=== PATIENT | female | born 1990 | race Caucasian/White ===

== ENCOUNTER 2016-12-24 06:05 | Emergency (ER) | payer BC ==
[2016-12-24 05:33] LABS: BASOPHILS 0.1 %; BASOPHILS ABSOLUTE 0.01 10/3/uL (0.0-0.16); EOSINOPHILS 0.2 %; EOSINOPHILS ABSOLUTE 0.02 10/3/uL (0.0-0.53); ER CBC TAT 0 Hrs 05 MinsNP; HEMATOCRIT 37.9 % (36.0-48.0); HEMOGLOBIN 13.3 g/dL (12.0-16.0); IMMATURE GRANULOCYTES 0.3 %; IMMATURE GRANULOCYTES ABSOLUTE 0.03 10/3/uL (0.0-0.11); LYMPHOCYTES 16.9 %; LYMPHOCYTES ABSOLUTE 1.69 10/3/uL (0.67-4.30); MANUAL DIFF NO %; MEAN CORPUS HGB CONC 35.1 g/dL (32.0-36.0); MEAN CORPUSCULAR HEMOGLOB 30.1 pg (26.0-34.0); MEAN CORPUSCULAR VOLUME 85.7 fL (80-100); MEAN PLATELET VOLUME 10.4 fL (9.2-13.0); MONOCYTES 6.8 %; MONOCYTES ABSOLUTE 0.68 10/3/uL (0.21-1.20); NEUTROPHILS 75.7 %; NEUTROPHILS ABSOLUTE 7.59 10/3/uL (2.02-8.40); PLATELET COUNT 294 10/3/uL (150-400); RBC DISTRIBUTION WIDTH 13.8 % (12.0-16.0); RED CELL COUNT 4.42 10/6/uL (4.0-5.6)
[2016-12-24 05:48] LABS: A/G RATIO 1.3 (0.7-1.9); ALBUMIN 4.4 G/DL (3.5-5.0); ALKALINE PHOSPHATASE 73 U/L (45-117); BUN (BLOOD UREA NITROGEN) 11 MG/DL (6-23); CHLORIDE, SERUM 107 MMOL/L (96-112); CO2 (CARBON DIOXIDE) 25 MMOL/L (24-34); CREATININE 1.09 MG/DL (0.55-1.02); GFR AFRICAN AMERICAN 82 ML/MIN (>=60); GFR NON AFRICAN AMERICAN 70 ML/MIN (>=60); GLOBULIN 3.3 G/DL (2.5-4.1); GLUCOSE, SERUM 91 MG/DL (60-99); POTASSIUM, SERUM 4.7 MMOL/L (3.5-5.3); SGOT(AST) 36 U/L (5-40); SGPT(ALT) 35 U/L (5-65); SODIUM, SERUM 139 MMOL/L (135-148); TOTAL BILIRUBIN 0.7 MG/DL (0-1.2); TOTAL PROTEIN 7.7 G/DL (6.0-8.5)
[~2016-12-24 06:05] MED LIST: VYVANSE20 MG OR; Vyvanse; YAZ1 TAB PO
[2016-12-24 06:06] LABS: ASCORBIC ACID (UR NOT ORDER) NEG (NEG); BILIRUBIN, URINE NEGATIVE (NEG); ER URINALYSIS TAT 0 Hrs 19 Mins; KETONE, URINE 20 MG/DL (NEG); LEUKOCYTE ESTERASE(NOT OR NEG (NEG); NITRITE (URINE) NEG (NEG); WBC (NOT ORDERED) (RFLEX) < 1 (0-5)
== END 2016-12-24 07:53 | disposition home or self-care (01) ==
LOC: ER 06:05
PROVIDERS: Emergency Medicine
DX: N13.2 Hydronephrosis with renal and ureteral calculous obstruction (principal); Z98.890 Other specified postprocedural states; Z87.442 Personal history of urinary calculi; Z88.1 Allergy status to other antibiotic agents; Z79.899 Other long term (current) drug therapy
CPT/HCPCS: 74176; 80053; 81001; 83690; 84703; 85025; 96374; 96375; 96376; 99284; J1170; J2405

== ENCOUNTER 2016-12-26 10:48 | Day surgery (SDC) | payer BC ==
--- NOTE | ~2016-12-26 | OP ---
Record Of Operation [facility] [address] [place]. [address] NAME: JERMAINE FLOWERS : 89 STATUS : [facility]#: [id number] AGE: 26 ADM/REG DATE : 12/26/16 MR#: [id number] REPORT SERV DATE: 12/26/16 DICTATED BY: Colby HARGROVE DATE: 12/26/16 REPORT STATUS : Draft TRANSCRIBED BY: MODL DATE: 12/26/16 DATE OF PROCEDURE: 12/26/2016 PREOPERATIVE DIAGNOSES: Right hydronephrosis with distal obstruction, possible residual stone. POSTOPERATIVE DIAGNOSES: Right hydronephrosis with distal obstruction, possible residual stone. No evidence of residual stone. PROCEDURE: Cystoscopy, right retrograde pyelography, ureteroscopy, double-J stent placement. SURGEON: Colby Hargrove M.D. ANESTHESIA: General with LMA. COMPLICATIONS: None. DRAINS: 7-[place] x 26 cm Contour double-J stent (on a string). BRIEF HISTORY: Ms. Flowers is a 26-year-old white female with a history of urolithiasis who presented to my office today with several days of right flank pain. A CT had showed right hydronephrosis but no obvious distal stone. She passed a small stone in the last 24 hours, but when I saw her, was fairly miserable with residual pain and nausea, we consider that she had residual stone. We discussed intervention which she and her mother agreed to. We discussed risks of bleeding, infection, anesthesia, injury to adjacent organs, inability to access ureter, etc. there were no unanswered questions. PROCEDURE: Under excellent general anesthesia, the patient was prepped and draped in standard lithotomy position. Cystoscopy was performed with a 30-degree lens, revealed no tumors, stones, or foreign bodies. The right orifice appeared full and the left orifice appeared normal. I performed a right retrograde pyelogram with an 8-[place] cone-tipped catheter and showed no obvious filling defect. There did appear to be ureteral fullness about a cm above the UVJ. I inserted an angled glidewire through a 5-[place] open-ended catheter and then a short rigid ureteroscope was inserted all the way to the proximal ureter but I saw no evidence of residual ureteral stone. I left the collecting system dilutely opacified, retrofitted wire in the cystoscope, placed a 7-[place] x 26 cm Contour double-J stent which coiled nicely in the renal pelvis and bladder. I left the string attached, and it was ultimately affixed to her skin with Mastisol and Tegaderm. I plan to discharge Ms. Flowers as an outpatient with the following instructions. DISCHARGE INSTRUCTIONS: 1. Home today. 2. Pyridium 200 mg one p.o. t.i.d. p.r.n. bladder pain, #15 with two refills. 3. Hydrocodone 5/325 one to two p.o. q.4 hours p.r.n. pain, #25. 4. Okay to pull her stent on 12/29/2016 in the a.m. I have communicated this to her mother who is an RN. If she has any trouble, she call my office. Otherwise, I would Record Of [place] [address] [place]. [address] NAME: JERMAINE FLOWERS : 89 STATUS : [facility] PAT#: [id number] AGE: 26 ADM/REG DATE : 12/26/16 MR#: [id number] REPORT SERV DATE: 12/26/16 DICTATED BY: Colby HARGROVE DATE: 12/26/16 REPORT STATUS : Draft TRANSCRIBED BY: BETTINA DATE: 12/26/16 like to see her in two to three months with a KUB, so we can assess her residual visible stone disease and review stone analysis from the stones sent in my office today. VERÓNICA/BETTINA Colby Hargrove M.D. / [id number] CC: Misha Watkins M.D.
[2016-12-26 11:31] LABS: BASOPHILS 0.1 %; BASOPHILS ABSOLUTE 0.01 10/3/uL (0.0-0.16); EOSINOPHILS 1.6 %; EOSINOPHILS ABSOLUTE 0.13 10/3/uL (0.0-0.53); HEMATOCRIT 39.5 % (36.0-48.0); HEMOGLOBIN 13.6 g/dL (12.0-16.0); IMMATURE GRANULOCYTES 0.2 %; IMMATURE GRANULOCYTES ABSOLUTE 0.02 10/3/uL (0.0-0.11); LYMPHOCYTES 26.4 %; LYMPHOCYTES ABSOLUTE 2.21 10/3/uL (0.67-4.30); MANUAL DIFF NO %; MEAN CORPUS HGB CONC 34.4 g/dL (32.0-36.0); MEAN CORPUSCULAR HEMOGLOB 29.8 pg (26.0-34.0); MEAN CORPUSCULAR VOLUME 86.4 fL (80-100); MEAN PLATELET VOLUME 10.5 fL (9.2-13.0); MONOCYTES 9.2 %; MONOCYTES ABSOLUTE 0.77 10/3/uL (0.21-1.20); NEUTROPHILS 62.5 %; NEUTROPHILS ABSOLUTE 5.24 10/3/uL (2.02-8.40); PLATELET COUNT 255 10/3/uL (150-400); RBC DISTRIBUTION WIDTH 13.7 % (12.0-16.0); RED CELL COUNT 4.57 10/6/uL (4.0-5.6); WHITE BLOOD CELLS 8.4 10/3/uL (4.5-10.5)
[2016-12-26 11:44] LABS: CALCIUM, SERUM 9.5 MG/DL (8.5-10.4); CHLORIDE, SERUM 107 MMOL/L (96-112); CO2 (CARBON DIOXIDE) 27 MMOL/L (24-34); CREATININE 1.01 MG/DL (0.55-1.02); GFR AFRICAN AMERICAN 90 ML/MIN (>=60); GFR NON AFRICAN AMERICAN 77 ML/MIN (>=60); GLUCOSE, SERUM 81 MG/DL (60-99); SODIUM, SERUM 142 MMOL/L (135-148)
[2016-12-26 11:45] LABS: BUN (BLOOD UREA NITROGEN) 6 MG/DL (6-23); POTASSIUM, SERUM 3.4 MMOL/L (3.5-5.3)
== END 2016-12-26 18:53 | disposition home or self-care (01) ==
LOC: SDC 10:48
PROC: BT1D1ZZ Fluoroscopy of Right Kidney, Ureter and Bladder using Low Osmolar Contrast (ICD-10-PCS; 2016-12-26)
PROC: 0T768DZ Dilation of Right Ureter with Intraluminal Device, Via Natural or Artificial Opening Endoscopic (ICD-10-PCS; principal; 2016-12-26 14:45)
DX: N13.30 Unspecified hydronephrosis (principal); T75.3XXA Motion sickness, initial encounter; Z88.1 Allergy status to other antibiotic agents; Z79.899 Other long term (current) drug therapy
CPT/HCPCS: 74420; 80048; 84703; 85025; A9270-GY; C1758; C1769; C2617; J2250; J2405; J3010; Q9967